=== PATIENT | female | born 1990 | race Hispanic/Latino ===

== ENCOUNTER 2023-11-11 21:29 | Emergency (ER) | payer BC, SELFPAY ==
[2023-11-11 21:30] VITALS: BP 169/88
[2023-11-11 21:54] VITALS: BP 139/80; BMI 53.0
--- NOTE | 2023-11-11 22:02 | ED.GENMED ---
History of Present Illness
General
Chief Complaint: Abdominal Pain
Source: patient and significant other
Exam Limitations: none
Time Seen by Provider: 11/11/23 21:52
Nursing documentation reviewed up to this point in time: agreed with
Travel History
Have you had any contact with someone who has COVID-19?: No
Do you have any symptoms of coronavirus? Fever > 100 degrees, chills, cough, shortness of breath, sore throat, loss of taste or smell, muscle aches, or headache?: No
History of Present Illness
History of Present Illness:
32-year-old female presents emergency department due to lower abdominal pain, nausea vomiting diarrhea that began several hours ago. No sick contacts. She states she ate a Gyro tonight. Pain worse in right lower quadrant.
Past History
Past History
ED Past Medical History: Other (PCOS)
ED Past Surgical History: Cholecystectomy
Social History
Tobacco: Non-smoker
Drug: None
Living: with family
Review of Systems
Review of Systems
Allergies reviewed?: Yes
All Other Systems: Not applicable
Constitutional: Reports no symptoms
EENT: Reports no symptoms
Respiratory: Reports no symptoms
Cardiac: Reports no symptoms
ABD/GI: Reports abdominal pain, nausea, vomiting and diarrhea
: Reports no symptoms
Musculoskeletal: Reports no symptoms
Skin: Reports no symptoms
Neurological: Reports no symptoms
Endocrine: Reports no symptoms
Hematologic/Lymphatic: Reports no symptoms
Psychiatric: Reports no symptoms
Phy Exam
Physical Exam
Physical Exam:
Physical Exam
General: Appears uncomfortable, afebrile, elevated BMI
Neck: supple. no meningeal signs. normal posterior pharynx
Heart: s1/s2 regular rate and rhythm, no murmur. equal radial
pulses.
HEENT: Pupils equal round reactive to light, EOMI
Lungs: no acute respiratory distress. clear bilaterally
Abdomen: normal bowel sounds. Right lower quadrant tenderness, no rebound or guarding. No CVAT
Neuro: alert and oriented. no focal neurological deficits cranial nerves II through XII intact
Skin: no rash
Psychiatric: well kept. interactive and cooperative
Extremities: no edema. no calf tenderness. negative homans. good distal pulses
Course
Orders/Labs/Results
Orders:
Orders
11/11/23 21:59
Urinalysis Reflex To Culture Urgent
11/11/23 22:00
CT Abd/Pel (IV only)-DH only Urgent
Comment:
Reason For Exam: RLQ abdominal pain, n/v/d
Test Result ONCE
11/11/23 22:01
0.9% Sodium Chloride 1000 ml [Nss] 1,000 ml IV BOLUS
Morphine Sulfate 4 mg IV NOW STA
11/11/23 22:02
Ondansetron Injectable [Zofran] 4 mg IV NOW STA
11/11/23 22:08
Complete Blood Count/With Diff Urgent
Comprehensive Metabolic Panel Urgent
HCG, Serum Qualitative Screen Urgent
Lipase Urgent
Abnormal Lab Results
11/11/23
22:08
WBC 16.3 H 10^3/uL
(4.8-10.8)
RBC 5.42 H 10^6/uL
(4.20-5.40)
MCV 74.5 L fL
(81.0-99.0)
MCH 25.1 L pg
(27.0-31.0)
Abs Immat Gran (auto) 0.1 H 10^3/uL
(0-0.05)
Absolute Neuts (auto) 14.4 H 10^3/uL
(1.4-6.5)
Absolute Lymphs (auto) 1.1 L 10^3/uL
(1.2-3.4)
Immature Gran % 0.6 H %
(0-0.5)
Neutrophils % 88.3 H %
(42.2-75.2)
Lymphocytes % 6.6 L %
(20.5-51.1)
Carbon Dioxide 21 L mmol/L
(22-30)
Glucose 141 H mg/dl
(70-99)
Total Protein 8.4 H g/dl
(6.3-8.2)
11/11/23 22:08
11/11/23 22:08
Vital Signs
Initial and Last Documented VS:
Initial Vital Signs
Temp Pulse Resp BP Pulse Ox
97.8 F 98 20 169/88 99
11/11/23 21:30 11/11/23 21:30 11/11/23 21:30 11/11/23 21:30 11/11/23 21:30
Last Documented Vital Signs
Temp Pulse Resp BP Pulse Ox
97.8 F 88 18 132/70 96
11/11/23 21:30 11/12/23 00:00 11/12/23 00:00 11/12/23 00:27 11/12/23 00:27
MDM/Problems Addressed
Differential Diagnosis Includes:
Appendicitis, gastroenteritis
MDM/Problems Addressed:
32-year-old female with gastroenteritis, nausea vomiting diarrhea. CT scan shows normal appendix. No signs of obstruction.
Chronic conditions affecting care: Previous abdomnial surgery
Acute Exacerbation and/or Progression of Chronic Illness: Previous abdomnial surgery
*Radiology
Radiology exam reviewed: radiology read reviewed (CT abdomen pelvis shows gastroenteritis, normal appendix)
*Pulse Oximetry
Patient hypoxic: no
*EKG
Interpreted by ED Provider?: NA
*Meat Stocker Interpretation
Rate: Meat Stocker- N/A
*Critical Care Note
Total Time (30-74mins, 75-104mins- exclusive of procedures): Not Applicable
Patient Management
Social determinants of health affecting care: Living situation and Strong social support
Escalation/DeEscalation of care consider admission/obs:
Admit not indicated
ED Attending Note
-
Portions of this chart may have been created with voice recognition software.� Occasional wrong word or��sound alike� substitutions may have occurred due to the inherent limitations of voice recognition software.
Discharge Plan
Departure
Patient Disposition: Home (Routine Discharge)
Date of Disposition: 11/12/23
Time of Disposition: 00:58
Patient with high blood pressure during this ER visit?: Yes
Condition: Good
Discharge Problem:
Nausea vomiting and diarrhea
Instructions: Diarrhea in adolescents and adults, Nausea and Vomiting, Adult (DC), Abdominal Pain, BLOOD PRESSURE
Prescriptions:
New
ondansetron HCl 4 mg tablet
4 mg PO DAILY PRN (Reason: nausea and vomiting) 4 Days Qty: 7 0RF
No Action
drospirenone-ethinyl estradiol [Latha (28)] 3-0.03 mg Tablet
1 tab PO DAILY
escitalopram oxalate [Lexapro] 10 mg Tablet
10 mg PO DAILY
Referrals:
NONE,* [Family Provider] -
Interventions
Interventions:
*Risk Screen - Suicide Last Done: 11/11/23 21:30
*General Assessment Last Done: 11/11/23 21:30
*Neglect/Abuse Screening Last Done: 11/11/23 21:30
ED- Fall Risk Assessment Last Done: 11/11/23 22:32
DJ-Kiysqk-Pinrwrjols Assessment Last Done: 11/11/23 22:32
[2023-11-11 22:12] LABS: % Basophils 0.3 % (0-2); % Eosinophils 0.3 % (0-6); % Immature Granulocytes 0.6 % (0-0.5); % Lymphocytes 6.6 % (20.5-51.1); % Monocytes 3.9 % (1.7-9.3); % Neutrophils 88.3 % (42.2-75.2); Absolute Basophils 0.1 10^3/uL (0-0.2); Absolute Eosinophils 0.1 10^3/uL (0-0.7); Absolute Immature Granulocytes 0.1 10^3/uL (0-0.05); Absolute Lymphocytes 1.1 10^3/uL (1.2-3.4); Absolute Monocytes 0.6 10^3/uL (0.1-0.6); Absolute Neutrophils 14.4 10^3/uL (1.4-6.5); Hematocrit 40.4 % (37.0-47.0); Hemoglobin 13.6 g/dL (12.0-16.0); Mean Corp Hgb Conc. 33.7 g/dL (33.0-37.0); Mean Corpuscular Hgb 25.1 pg (27.0-31.0); Mean Corpuscular Volume 74.5 fL (81.0-99.0); Mean Platelet Volume 9.1 fL (7.4-10.4); Nucleated Red Blood Cells % 0 %; Platelet Count 364 10^3/uL (130-400); Red Blood Cell Count 5.42 10^6/uL (4.20-5.40); White Blood Cell Count 16.3 10^3/uL (4.8-10.8)
[2023-11-11] MEDS: ZOFRAN 4 MG IV (22:18)
[2023-11-11 22:24] LABS: HCG, Serum Qualitative Screen Negative
[2023-11-11] MEDS: NSS 1000 IV (22:25)
[2023-11-11] MEDS: MORPHINE SULFATE 4 MG IV (22:26)
[2023-11-11 22:27] LABS: ALT (SGPT) 18 U/L (0-35); AST (SGOT) 27 U/L (14-36); Albumin 4.4 g/dl (3.5-5.0); Alkaline Phosphatase 79 U/L (38-126); Blood Urea Nitrogen 17 mg/dl (7-17); Calcium 9.6 mg/dl (8.4-10.2); Carbon Dioxide 21 mmol/L (22-30); Chloride 107 mmol/L (98-107); Estimated Creatinine Clearance > 125 ml/min; Glucose 141 mg/dl (70-99); Lipase 100 U/L (23-300); Potassium 4.3 mmol/L (3.5-5.1); Sodium 135 mmol/L (135-145); Total Bilirubin 0.6 mg/dl (0.2-1.3); Total Protein 8.4 g/dl (6.3-8.2); eGFR > 60.00
[2023-11-11 22:58] VITALS: BP 139/77
[2023-11-12 00:27] VITALS: BP 132/70
== END 2023-11-12 01:15 | disposition home or self-care (01) ==
LOC: EMR 21:29
PROVIDERS: EMERGENCY PHYSICIAN Emergency Medicine
DX: R10.30 Lower abdominal pain, unspecified (principal); R11.2 Nausea with vomiting, unspecified; R19.7 Diarrhea, unspecified; E28.2 Polycystic ovarian syndrome
CPT/HCPCS: 99284; 96374; 96375; 96361; 74177; 80053; 83690; 84703; 85025; Q9967